=== PATIENT | male | born 1985 | race Caucasian/White ===

== ENCOUNTER 2016-09-20 12:46 | Emergency (ER) | payer OTHER ==
--- NOTE | 2016-09-20 15:48 | ED ORDER SUMMARY ---
..... Patient: NESS NEAL OrderSheet [facility] VisitID: [id number] [address] [place] [address] 31y, M Registration Date/Time: 09/20/2016 ORDER SHEET Weight: 169.1 kg (stated) Allergies: No Known Drug Allergy GENERAL ORDERS: UA-Culture if indicated Urgent (13:24 09/20/2016 Sinanelli R.N. verbal order read back to Denny DE LOS SANTOS) (13:24 Sinanelli R.N.) CBC w Diff Urgent (14:48 09/20/2016 EKoroleva P.A.-C) (14:55 Rick R.N.) CMP Urgent (14:48 09/20/2016 EKoroleva P.A.-C) (14:55 Rick R.N.) Lipase Urgent (14:48 09/20/2016 EKoroleva P.A.-C) (14:55 Rick R.N.) MEDICATION ORDERS: Valium PO 5 mg (NOW) (14:50 09/20/2016 EKoroleva P.A.-C) (Ack 14:51 Rick R.N.) (14:55 Rick R.N.) Hydrocodone-APAP PO 5/325 mg (NOW, HIGH ALERT MEDICATION) (14:50 09/20/2016 EKoroleva P.A.-C) (Ack 14:51 Rick R.N.) (14:55 Rick R.N.) IV FLUIDS: ORDER SHEET NOTES: [Electronically signed by Antonia Rai R.N. (16:17 09/20/2016)] [Electronically signed by Sherlyn DorseyASaurabh-C (16:56 09/20/2016)] [Electronically locked/signed by Antonia Rai R.N. (16:17 09/20/2016)]
--- NOTE | 2016-09-20 15:48 | ED NURSING NOTES ---
Clinical Report - Nurses [facility] [place] [address] 09/20/2016 12:45 Patient: NESS NEAL TRIAGE Triage time 13:10 Sep 20 2016. Acuity: LEVEL 3. Chief Complaint: BACK PAIN. Alert. LALA COMA SCORE: Lala Coma Scale: 15- eyes open spontaneously (4); best verbal response- oriented x 4 (5); best motor response- obeys commands (6). --13:22 Jonathan Blanco R.N. 13:18 09/20/16. BP: 140/93. HR: 94. RR: 18. O2 saturation: 96% on room air. Temp: 98.7 F (oral). Pain level now: 05/24. Additional comments: (R) Flank. --13:22 Jonathan Blanco R.N. Weight: 169.1 kg stated. Height/Length: 76 inches Per Patient. BMI: 45.4. --13:18 Jonathan Blanco R.N. Medications CeleXA Oral 40 mg. --13:12 Jonathan Blanco R.N. Allergies No Known Drug Allergy. --13:13 Jonathan Blanco R.N. Medication/allergy information source: the patient. --13:22 Jonathan Blanco R.N. History Arrived by private vehicle. Historian: patient. Accompanied by friend. Primary physician (Reece Dupree). ( Back Pain in the (R) Flank region). Onset. (about 3 - 4 days ago). No history of recent trauma. ( nausea). 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 (Excedrin, Icy-Hot). PAST MEDICAL HX: Tetanus status: unknown. Immunizations: status is unknown. SOCIAL HX: Never smoker. No alcohol use or drug use. No infectious disease exposure. ABUSE ASSESSMENT: No report of abuse. FALL RISK ASSESSMENT: Fall risk assessment completed. No fall risk identified. NUTRITIONAL RISK ASSESSMENT: The nutritional risk assessment revealed no deficiencies. FUNCTIONAL ASSESSMENT: Functional assessment: no impairments noted. LEARNING NEEDS ASSESSMENT: The learning needs assessment revealed no barriers. SKIN INTEGRITY ASSESSMENT: Skin integrity risk assessment completed. No skin integrity risk identified. --13:22 Jonathan Blanco R.N. PROBLEMS: Sprain. Abscess. Dysuria. Depression. Bronchitis. Post-Op Complications. Paronychia. Atopic Dermatitis. Tetanus Status. Ingrown Toenail. Sinusitis. Pedal Edema. Lower Extremity Pain. Hypertension. Sleep Apnea. --13:21 Jonathan Blanco R.N. ADDITIONAL SURGERIES: Tracheostomy. Tympanostomy Tubes. --13:21 Jonathan Blanco R.N. Interventions ID band on patient. To treatment room. --13:22 Jonathan Blanco R.N. PHYSICAL ASSESSMENT 14:45 09/20/16. Ambulatory to room. Patient gowned. GENERAL / NEURO / PSYCH: Alert. Oriented X 4. Appears in no acute distress. RESPIRATORY: Respirations not labored. --14:45 Antonia Rai R.N. NURSING PROGRESS NOTES 13:25 09/20/16. Patient ID band checked for patient name, birthdate and medical record number: patient confirmed. Instructions provided to collect clean catch urine and patient verbalized understanding. Clean catch urine collected with return of yellow-colored clear urine; odor is normal; sample sent to lab for urinalysis and culture. Specimen labeled in the presence of the patient. --13:25 Jonathan Blanco R.N. 14:45 09/20/16. Patient gowned. Head of bed elevated. Call light placed in reach. Side rails up x 1. Bed placed in lowest position. Brakes of bed on. --14:45 Antonia Rai R.N. 14:55 09/20/2016 Valium (Diazepam) PO Tablets 5 mg given. Allergies verified, confirmed 5 rights and sedative warning given to the patient. --14:55 Antonia Rai R.N. 14:55 09/20/2016 Hydrocodone-APAP (Hydrocodone-Acetaminophen) PO 5/325 mg Tablets 1 tab given. Allergies verified, confirmed 5 rights and sedative warning given to the patient. --14:55 Antonia Rai R.N. Blood samples drawn by lab. --14:56 Antonia Rai R.N. ( Called Dr. Kirby Flowers in [place].). --15:16 Harika Cervantes, ER Tech1 16:00. Reassessment after medication administered. He is calm and resting quietly. Overall patient status is improved- he states feels better. GENERAL / NEURO / PSYCH: Alert. Oriented X 4. RESPIRATORY: No respiratory distress. SKIN: Skin is warm and dry. --16:16 Antonia Rai R.N. DISPOSITION / DISCHARGE Departure time: 1600. Condition at departure: improved and stable. No learning barriers present. Reviewed medication(s). Prescription(s) given to the patient. Patient verbalized understanding. Written instructions provided in Ukrainian. The patient was discharged home and unaccompanied at time of discharge. He left the Emergency Department ambulatory and via private vehicle. FALL RISK ASSESSMENT: Fall risk assessment completed. No fall risk identified. --16:16 Antonia Rai R.N. 16:00 09/20/16. BP: 132/71. HR: 86. RR: 18. O2 saturation: 95% on room air. Pain level now: 11/22. --16:16 Antonia Rai R.N. Locked/Released at 09/20/2016 16:17 by Antonia Rai R.N.
--- NOTE | 2016-09-20 15:48 | ED ORDER SUMMARY ---
..... Patient: NESS NEAL OrderSheet [facility] VisitID: [id number] [address] [place] [address] 31y, M Registration Date/Time: 09/20/2016 ORDER SHEET Weight: 169.1 kg (stated) Allergies: No Known Drug Allergy GENERAL ORDERS: UA-Culture if indicated Urgent (13:24 09/20/2016 Sinanelli R.N. verbal order read back to Denny DE LOS SANTOS) (13:24 Sinanelli R.N.) CBC w Diff Urgent (14:48 09/20/2016 EKoroleva P.A.-C) (14:55 Rick R.N.) CMP Urgent (14:48 09/20/2016 EKoroleva P.A.-C) (14:55 Rick R.N.) Lipase Urgent (14:48 09/20/2016 EKoroleva P.A.-C) (14:55 Rick R.N.) MEDICATION ORDERS: Valium PO 5 mg (NOW) (14:50 09/20/2016 EKoroleva P.A.-C) (Ack 14:51 Rick R.N.) (14:55 Rick R.N.) Hydrocodone-APAP PO 5/325 mg (NOW, HIGH ALERT MEDICATION) (14:50 09/20/2016 EKoroleva P.A.-C) (Ack 14:51 Rick R.N.) (14:55 Rick R.N.) IV FLUIDS: ORDER SHEET NOTES: [Electronically signed by Antonia Rai R.N. (16:17 09/20/2016)] [Electronically signed by Sherlyn DorseyASaurabh-C (16:56 09/20/2016)] [Electronically locked/signed by Antonia Rai R.N. (16:17 09/20/2016)]
--- NOTE | 2016-09-20 15:48 | ED NURSING NOTES ---
Clinical Report - Nurses [facility] [place] [address] 09/20/2016 12:45 Patient: NESS NEAL TRIAGE Triage time 13:10 Sep 20 2016. Acuity: LEVEL 3. Chief Complaint: BACK PAIN. Alert. LALA COMA SCORE: Lala Coma Scale: 15- eyes open spontaneously (4); best verbal response- oriented x 4 (5); best motor response- obeys commands (6). --13:22 Jonathan Blanco R.N. 13:18 09/20/16. BP: 140/93. HR: 94. RR: 18. O2 saturation: 96% on room air. Temp: 98.7 F (oral). Pain level now: 05/24. Additional comments: (R) Flank. --13:22 Jonathan Blanco R.N. Weight: 169.1 kg stated. Height/Length: 76 inches Per Patient. BMI: 45.4. --13:18 Jonathan Blanco R.N. Medications CeleXA Oral 40 mg. --13:12 Jonathan Blanco R.N. Allergies No Known Drug Allergy. --13:13 Jonathan Blanco R.N. Medication/allergy information source: the patient. --13:22 Jonathan Blanco R.N. History Arrived by private vehicle. Historian: patient. Accompanied by friend. Primary physician (Reece Dupree). ( Back Pain in the (R) Flank region). Onset. (about 3 - 4 days ago). No history of recent trauma. ( nausea). 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 (Excedrin, Icy-Hot). PAST MEDICAL HX: Tetanus status: unknown. Immunizations: status is unknown. SOCIAL HX: Never smoker. No alcohol use or drug use. No infectious disease exposure. ABUSE ASSESSMENT: No report of abuse. FALL RISK ASSESSMENT: Fall risk assessment completed. No fall risk identified. NUTRITIONAL RISK ASSESSMENT: The nutritional risk assessment revealed no deficiencies. FUNCTIONAL ASSESSMENT: Functional assessment: no impairments noted. LEARNING NEEDS ASSESSMENT: The learning needs assessment revealed no barriers. SKIN INTEGRITY ASSESSMENT: Skin integrity risk assessment completed. No skin integrity risk identified. --13:22 Jonathan Blanco R.N. PROBLEMS: Sprain. Abscess. Dysuria. Depression. Bronchitis. Post-Op Complications. Paronychia. Atopic Dermatitis. Tetanus Status. Ingrown Toenail. Sinusitis. Pedal Edema. Lower Extremity Pain. Hypertension. Sleep Apnea. --13:21 Jonathan Blanco R.N. ADDITIONAL SURGERIES: Tracheostomy. Tympanostomy Tubes. --13:21 Jonathan Blanco R.N. Interventions ID band on patient. To treatment room. --13:22 Jonathan Blanco R.N. PHYSICAL ASSESSMENT 14:45 09/20/16. Ambulatory to room. Patient gowned. GENERAL / NEURO / PSYCH: Alert. Oriented X 4. Appears in no acute distress. RESPIRATORY: Respirations not labored. --14:45 Antonia Rai R.N. NURSING PROGRESS NOTES 13:25 09/20/16. Patient ID band checked for patient name, birthdate and medical record number: patient confirmed. Instructions provided to collect clean catch urine and patient verbalized understanding. Clean catch urine collected with return of yellow-colored clear urine; odor is normal; sample sent to lab for urinalysis and culture. Specimen labeled in the presence of the patient. --13:25 Jonathan Blanco R.N. 14:45 09/20/16. Patient gowned. Head of bed elevated. Call light placed in reach. Side rails up x 1. Bed placed in lowest position. Brakes of bed on. --14:45 Antonia Rai R.N. 14:55 09/20/2016 Valium (Diazepam) PO Tablets 5 mg given. Allergies verified, confirmed 5 rights and sedative warning given to the patient. --14:55 Antonia Rai R.N. 14:55 09/20/2016 Hydrocodone-APAP (Hydrocodone-Acetaminophen) PO 5/325 mg Tablets 1 tab given. Allergies verified, confirmed 5 rights and sedative warning given to the patient. --14:55 Antonia Rai R.N. Blood samples drawn by lab. --14:56 Antonia Rai R.N. ( Called Dr. Kirby Flowers in [place].). --15:16 Harika Cervantes, ER Tech1 16:00. Reassessment after medication administered. He is calm and resting quietly. Overall patient status is improved- he states feels better. GENERAL / NEURO / PSYCH: Alert. Oriented X 4. RESPIRATORY: No respiratory distress. SKIN: Skin is warm and dry. --16:16 Antonia Rai R.N. DISPOSITION / DISCHARGE Departure time: 1600. Condition at departure: improved and stable. No learning barriers present. Reviewed medication(s). Prescription(s) given to the patient. Patient verbalized understanding. Written instructions provided in Malagasy. The patient was discharged home and unaccompanied at time of discharge. He left the Emergency Department ambulatory and via private vehicle. FALL RISK ASSESSMENT: Fall risk assessment completed. No fall risk identified. --16:16 Antonia Rai R.N. 16:00 09/20/16. BP: 132/71. HR: 86. RR: 18. O2 saturation: 95% on room air. Pain level now: 11/22. --16:16 Antonia Rai R.N. Locked/Released at 09/20/2016 16:17 by Antonia Rai R.N.
--- NOTE | 2016-09-20 15:48 | ED CLINICAL REPORT ---
Clinical Report - Physicians/Mid Levels [facility] [address] [place] [address] 09/20/2016 12:45 Patient: NESS NEAL Time Seen: 16:53 Sep 20 2016. Arrived- By private vehicle. Historian- patient. HISTORY OF PRESENT ILLNESS Chief Complaint: BACK PAIN. It is described as being in the area of the right upper lumbar spine and right flank. 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 Additional history - Right-sided flank pain, associated with worsening of movement. Pain improves with lying still. Pain worsens upon standing. Patient reportsno trauma history. Denies urgency frequency of urination. Denies any nausea or vomiting or diarrhea. Denies any shortness of breath or chest pain. Denies radiation of pain. REVIEW OF SYSTEMS No fever, difficulty with urination, urinary frequency or vaginal discharge. All systems otherwise negative, except as recorded above. SOCIAL HISTORY Never smoker. No alcohol use or drug use. ADDITIONAL NOTES The nursing notes have been reviewed. PHYSICAL EXAM Vital Signs: 09/20/2016 13:18 BP: 140/93. HR: 94. RR: 18. O2 saturation: 96%. Temp: 98.7 F. Pain level now: 10/10. Appearance: Alert. Eyes: Pupils equal, round and reactive to light. ENT: Ears normal. Neck: (trach in place, no surrounding drainage). Respiratory: No respiratory distress. Breath sounds normal. Abdomen: No visible injury. Soft. Back: Muscle spasm of the back (r. thoracic, and upper lumbar). Soft tissue tenderness. No painless ROM. No vertebral point tenderness. (pain with external rotation). Neuro: Oriented X 3. Mood/affect normal. PROGRESS AND PROCEDURES Course of Care: There are no risks for spinal epidural abscess or hematoma as patient is without any risk factors such as IVDA or evidence of active infection, no midline tenderness to percussion. Hence I do not feel emergent imaging with an MRI is indicated. However I did discuss with the patient that if these symptoms develop, or if the pain does not resolve an MRI may need to be done outpatient, or in the ED if symptoms worsen acutely or new onset of the above mentioned symptoms develop. Patient with isolated right flank pain, with negative lab workup and urinalysis, Ongoing for 3 days, worsening on palpation and movement, exacerbated by such, and is also reproduced. No associated shortness of breath, chest pain. Abdomen is soft nontender. No history of trauma or injury. No rash. No midline spinous tenderness. 09/20/2016 16:00 BP: 132/71. HR: 86. RR: 18. O2 saturation: 95%. Pain level now: 10. Patient is stable. Symptoms better. Patient/family counseled. Differential Diagnosis: I considered Musculo-skeletal strain, contusion, facet syndrome, sacroiliac joint strain, splenic injury, osteoarthritis, ankylosing spondylitis, pancreatitis, epidural abscess, pyelonephritis, neurofibroma, meningioma, multiple myeloma, metastatic cancer, abdominal aortic aneurysm and aortic dissection as a possible cause of back pain in this patient. This is a partial list of diagnoses considered. Disposition: Discharged. CLINICAL IMPRESSION Acute myofascial strain Acute lumbar strain. INSTRUCTIONS Apply ice. Limit lifting. Prescription Medications: Hydrocodone/APAP 7.5mg / 325mg: take 1 orally every 6 hours as needed for pain. Dispense twelve (12). No refill. Robaxin 750 mg: take 1 orally every 8 hours for 5 days, as needed for muscle spasm. Dispense fifteen (15). No refill. Substitution is permissible. Follow-up: Follow up with your doctor in three days. (Electronically signed by Sherlyn Dorsey P.A.-C 09/20/2016 16:56)
--- NOTE | 2016-09-20 15:48 | ED CLINICAL REPORT ---
Clinical Report - Physicians/Mid Levels [facility] [address] [place] [address] 09/20/2016 12:45 Patient: NESS NEAL Time Seen: 16:53 Sep 20 2016. Arrived- By private vehicle. Historian- patient. HISTORY OF PRESENT ILLNESS Chief Complaint: BACK PAIN. It is described as being in the area of the right upper lumbar spine and right flank. 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 Additional history - Right-sided flank pain, associated with worsening of movement. Pain improves with lying still. Pain worsens upon standing. Patient reportsno trauma history. Denies urgency frequency of urination. Denies any nausea or vomiting or diarrhea. Denies any shortness of breath or chest pain. Denies radiation of pain. REVIEW OF SYSTEMS No fever, difficulty with urination, urinary frequency or vaginal discharge. All systems otherwise negative, except as recorded above. SOCIAL HISTORY Never smoker. No alcohol use or drug use. ADDITIONAL NOTES The nursing notes have been reviewed. PHYSICAL EXAM Vital Signs: 09/20/2016 13:18 BP: 140/93. HR: 94. RR: 18. O2 saturation: 96%. Temp: 98.7 F. Pain level now: 10/10. Appearance: Alert. Eyes: Pupils equal, round and reactive to light. ENT: Ears normal. Neck: (trach in place, no surrounding drainage). Respiratory: No respiratory distress. Breath sounds normal. Abdomen: No visible injury. Soft. Back: Muscle spasm of the back (r. thoracic, and upper lumbar). Soft tissue tenderness. No painless ROM. No vertebral point tenderness. (pain with external rotation). Neuro: Oriented X 3. Mood/affect normal. PROGRESS AND PROCEDURES Course of Care: There are no risks for spinal epidural abscess or hematoma as patient is without any risk factors such as IVDA or evidence of active infection, no midline tenderness to percussion. Hence I do not feel emergent imaging with an MRI is indicated. However I did discuss with the patient that if these symptoms develop, or if the pain does not resolve an MRI may need to be done outpatient, or in the ED if symptoms worsen acutely or new onset of the above mentioned symptoms develop. Patient with isolated right flank pain, with negative lab workup and urinalysis, Ongoing for 3 days, worsening on palpation and movement, exacerbated by such, and is also reproduced. No associated shortness of breath, chest pain. Abdomen is soft nontender. No history of trauma or injury. No rash. No midline spinous tenderness. 09/20/2016 16:00 BP: 132/71. HR: 86. RR: 18. O2 saturation: 95%. Pain level now: 10. Patient is stable. Symptoms better. Patient/family counseled. Differential Diagnosis: I considered Musculo-skeletal strain, contusion, facet syndrome, sacroiliac joint strain, splenic injury, osteoarthritis, ankylosing spondylitis, pancreatitis, epidural abscess, pyelonephritis, neurofibroma, meningioma, multiple myeloma, metastatic cancer, abdominal aortic aneurysm and aortic dissection as a possible cause of back pain in this patient. This is a partial list of diagnoses considered. Disposition: Discharged. CLINICAL IMPRESSION Acute myofascial strain Acute lumbar strain. INSTRUCTIONS Apply ice. Limit lifting. Prescription Medications: Hydrocodone/APAP 7.5mg / 325mg: take 1 orally every 6 hours as needed for pain. Dispense twelve (12). No refill. Robaxin 750 mg: take 1 orally every 8 hours for 5 days, as needed for muscle spasm. Dispense fifteen (15). No refill. Substitution is permissible. Follow-up: Follow up with your doctor in three days. (Electronically signed by Sherlyn Dorsey P.A.-C 09/20/2016 16:56)
--- NOTE | 2016-09-20 16:56 | ED MAR SUMMARY ---
..... Medication Administration Record [facility] [address] [place] [address] Patient: NESS NEAL Visit ID: [id number] 31y, M Weight: 169.1 kg Height/Length: 76 in BMI: 45.4 ALLERGIES: No Known Drug Allergy Given 14:09/20/2016 Antonia Rai RSaurabhN. Medication Administered: VALIUM [PO] (DIAZEPAM), Dose: 5 mg Tablets PO. Medication Ordered: Valium PO 5 mg (NOW). Given 14:09/20/2016 Antonia Rai, R.N. Medication Administered: HYDROCODONE-APAP [PO] (HYDROCODONE-ACETAMINOPHEN), Dose: 1 tab 5/325 mg Tablets PO. Medication Ordered: Hydrocodone-APAP PO 5/325 mg (NOW, HIGH ALERT MEDICATION).
--- NOTE | 2016-09-20 16:56 | ED DISCHARGE INSTRUCTIONS ---
Patient: NESS NEAL General Instructions [facility] VisitID: [id number] [place] [address] 31y, M Registration Date/Time: 09/20/2016 Acute myofascial strain Acute lumbar strain. INSTRUCTIONS Apply ice. Limit lifting. Prescription Medications: Hydrocodone/APAP 7.5mg / 325mg: take 1 orally every 6 hours as needed for pain. Dispense twelve (12). No refill. Robaxin 750 mg: take 1 orally every 8 hours for 5 days, as needed for muscle spasm. Dispense fifteen (15). No refill. Substitution is permissible. Follow-up: Follow up with your doctor in three days. ADDITIONAL INFORMATION Muscle Strain,Extremity A MUSCLE STRAIN is a stretching and tearing of muscle fibers. This causes pain, especially with motion of that muscle. There may also be some swelling and bruising. Home Care: 1) Keep the injured area raised to reduce pain and swelling. This is especially important during the first 48 hours. 2) Make an ice pack (ice cubes in a plastic bag, wrapped in a towel) and apply for 20 minutes every 1-2 hours the first day. You should continue with ice packs 3-4 times a day for the second and third days. Unless otherwise instructed, on the fourth day you may begin hot soaks or hot packs (small towel soaked in hot water) 3-4 times a day while you gently exercise the involved area. 3) You may use acetaminophen (Tylenol) or ibuprofen (Motrin, Advil) to control pain, unless another medicine was prescribed. [ NOTE : If you have chronic liver or kidney disease or ever had a stomach ulcer or GI bleeding, talk with your doctor before using these medicines.] 4) For LEG STRAINS: If CRUTCHES have been recommended, do not bear full weight on the injured leg until you can do so without pain. You may return to sports when you are able to hop and run on the injured leg without pain. Follow Up with your doctor or this facility if you are not improving within the next five days. Get Prompt Medical Attention if any of the following occur: -- Fingers or toes become swollen, cold, blue, numb or tingly -- Pain or swelling increases Back Pain [Acute Or Chronic] Back pain is usually caused by an injury to the muscles or ligaments of the spine. Sometimes the disks that separate each bone in the spine may bulge and cause pain by pressing on a nearby nerve. Back pain may also appear after a sudden twisting/bending force (such as in a car accident), after a simple awkward movement, or lifting something heavy with poor body positioning. In either case, muscle spasm is often present and adds to the pain. Acute back pain usually gets better in one to two weeks. Back pain related to disk disease, arthritis in the spinal joints or spinal stenosis (narrowing of the spinal canal) can become chronic and last for months or years. Unless you had a physical injury (for example, a car accident or fall) X-rays are usually not ordered for the initial evaluation of back pain. If pain continues and does not respond to medical treatment, x-rays and other tests may be performed at a later time. Home Care: You may need to stay in bed the first few days. But, as soon as possible, begin sitting or walking to avoid problems with prolonged bed rest (muscle weakness, worsening back stiffness and pain, blood clots in the legs). When in bed, try to find a position of comfort. A firm mattress is best. Try lying flat on your back with pillows under your knees. You can also try lying on your side with your knees bent up towards your chest and a pillow between your knees. Avoid prolonged sitting. This puts more stress on the lower back than standing or walking. During the first two days after injury, apply an ICE PACK to the painful area for 20 minutes every 2-4 hours. This will reduce swelling and pain. HEAT (hot shower, hot bath or heating pad) works well for muscle spasm. You can start with ice, then switch to heat after two days. Some patients feel best alternating ice and heat treatments. Use the one method that feels the best to you. You may use acetaminophen (Tylenol) or ibuprofen (Motrin, Advil) to control pain, unless another pain medicine was prescribed. [NOTE: If you have chronic liver or kidney disease or ever had a stomach ulcer or GI bleeding, talk with your doctor before using these medicines.] Be aware of safe lifting methods and do not lift anything over 15 pounds until all the pain is gone. Follow Up with your doctor or this facility if your symptoms do not start to improve after one week. Physical therapy may be needed. [NOTE: If X-rays were taken, they will be reviewed by a radiologist. You will be notified of any new findings that may affect your care.] Get Prompt Medical Attention if any of the following occur: Pain becomes worse or spreads to your legs Weakness or numbness in one or both legs Loss of bowel or bladder control Numbness in the groin or genital area Hydrocodone Bitartrate, Acetaminophen Oral tablet What is this medicine? ACETAMINOPHEN; HYDROCODONE (a set a TEODORO annetta fen; mane droe KOE done) is a pain reliever. It is used to treat mild to moderate pain. How should I use this medicine? Take this medicine by mouth. Swallow it with a full glass of water. Follow the directions on the prescription label. If the medicine upsets your stomach, take the medicine with food or milk. Do not take more than you are told to take. Talk to your house nurse regarding the use of this medicine in children. This medicine is not approved for use in children. What side effects may I notice from receiving this medicine? Side effects that you should report to your doctor or health patient care manager as soon as possible: allergic reactions like skin rash, itching or hives, swelling of the face, lips, or tongue breathing problems confusion feeling faint or lightheaded, falls stomach pain yellowing of the eyes or skin Side effects that usually do not require medical attention (report to your doctor or health patient care manager if they continue or are bothersome): nausea, vomiting stomach upset What may interact with this medicine? alcohol antihistamines isoniazid medicines for depression, anxiety, or psychotic disturbances medicines for sleep muscle relaxants naltrexone narcotic medicines (opiates) for pain phenobarbital ritonavir tramadol What if I miss a dose? If you miss a dose, take it as soon as you can. If it is almost time for your next dose, take only that dose. Do not take double or extra doses. Where should I keep my medicine? Keep out of the reach of children. This medicine can be abused. Keep your medicine in a safe place to protect it from theft. Do not share this medicine with anyone. Selling or giving away this medicine is dangerous and against the law. Store at room temperature between 15 and 30 degrees C (59 and 86 degrees F). Protect from light. Keep container tightly closed. Throw away any unused medicine after the expiration date. Discard unused medicine and used packaging carefully. Pets and children can be harmed if they find used or lost packages. What should I tell my health care provider before I take this medicine? They need to know if you have any of these conditions: brain tumor Crohn's disease, inflammatory bowel disease, or ulcerative colitis drink more than 3 alcohol-containing drinks per day drug abuse or addiction head injury heart or circulation problems kidney disease or problems going to the bathroom liver disease lung disease, asthma, or breathing problems an unusual or allergic reaction to acetaminophen, hydrocodone, other opioid analgesics, other medicines, foods, dyes, or preservatives or trying to get breast-feeding What should I watch for while using this medicine? Tell your doctor or health patient care manager if your pain does not go away, if it gets worse, or if you have new or a different type of pain. You may develop tolerance to the medicine. Tolerance means that you will need a higher dose of the medicine for pain relief. Tolerance is normal and is expected if you take the medicine for a long time. Do not suddenly stop taking your medicine because you may develop a severe reaction. Your body becomes used to the medicine. This does NOT mean you are addicted. Addiction is a behavior related to getting and using a drug for a non-medical reason. If you have pain, you have a medical reason to take pain medicine. Your doctor will tell you how much medicine to take. If your doctor wants you to stop the medicine, the dose will be slowly lowered over time to avoid any side effects. You may get drowsy or dizzy when you first start taking the medicine or change doses. Do not drive, use machinery, or do anything that may be dangerous until you know how the medicine affects you. Stand or sit up slowly. There are different types of narcotic medicines (opiates) for pain. If you take more than one type at the same time, you may have more side effects. Give your health care provider a list of all medicines you use. Your doctor will tell you how much medicine to take. Do not take more medicine than directed. Call emergency for help if you have problems breathing. The medicine will cause constipation. Try to have a bowel movement at least every 2 to 3 days. If you do not have a bowel movement for 3 days, call your doctor or health patient care manager. Too much acetaminophen can be very dangerous. Do not take Tylenol (acetaminophen) or medicines that contain acetaminophen with this medicine. Many non-prescription medicines contain acetaminophen. Always read the labels carefully. Methocarbamol Oral tablet What is this medicine? METHOCARBAMOL (meth oh KAPIL ba mole) helps to relieve pain and stiffness in muscles caused by strains, sprains, or other injury to your muscles. How should I use this medicine? Take this medicine by mouth with a full glass of water. Follow the directions on the prescription label. Take your medicine at regular intervals. Do not take your medicine more often than directed. Talk to your house nurse regarding the use of this medicine in children. Special care may be needed. What side effects may I notice from receiving this medicine? Side effects that you should report to your doctor or health patient care manager as soon as possible: allergic reactions like skin rash, itching or hives, swelling of the face, lips, or tongue blurred vision or changes in vision confusion fainting spells fever nausea or vomiting seizures Side effects that usually do not require medical attention (report to your doctor or health patient care manager if they continue or are bothersome): dizziness drowsiness headache metallic taste What may interact with this medicine? alcohol or medicines that contain alcohol cholinesterase inhibitors like neostigmine, ambenonium, and pyridostigmine bromide other medicines that cause drowsiness What if I miss a dose? If you miss a dose, take it as soon as you can. If it is almost time for your next dose, take only the next dose. Do not take double or extra doses. Where should I keep my medicine? Keep out of the reach of children. Store at room temperature between 20 and 25 degrees C (68 and 77 degrees F). Keep container tightly closed. Throw away any unused medicine after the expiration date. What should I tell my health care provider before I take this medicine? They need to know if you have any of these conditions: kidney disease seizures an unusual or allergic reaction to methocarbamol, other medicines, foods, dyes, or preservatives or trying to get breast-feeding What should I watch for while using this medicine? You may get drowsy or dizzy. Do not drive, use machinery, or do anything that needs mental alertness until you know how this medicine affects you. Do not stand or sit up quickly, especially if you are an older patient. This reduces the risk of dizzy or fainting spells. Alcohol may interfere with the effect of this medicine. Avoid alcoholic drinks. You have been given the following additional information: Muscle Strain, Extremity Back Pain (Acute Or Chronic) Hydrocodone Bitartrate, Acetaminophen Oral tablet Methocarbamol Oral tablet Limit lifting. (Electronically signed by Sherlyn Dorsey P.A.-C 09/20/2016 16:56)
--- NOTE | 2016-09-20 16:56 | ED MAR SUMMARY ---
..... Medication Administration Record [facility] [address] [place] [address] Patient: NESS NEAL Visit ID: [id number] 31y, M Weight: 169.1 kg Height/Length: 76 in BMI: 45.4 ALLERGIES: No Known Drug Allergy Given 14:09/20/2016 Antonia Rai RSaurabhN. Medication Administered: VALIUM [PO] (DIAZEPAM), Dose: 5 mg Tablets PO. Medication Ordered: Valium PO 5 mg (NOW). Given 14:09/20/2016 Antonia Rai, R.N. Medication Administered: HYDROCODONE-APAP [PO] (HYDROCODONE-ACETAMINOPHEN), Dose: 1 tab 5/325 mg Tablets PO. Medication Ordered: Hydrocodone-APAP PO 5/325 mg (NOW, HIGH ALERT MEDICATION).
--- NOTE | 2016-09-20 16:56 | ED MED RECONCILIATION SUMMARY ---
Patient: NESS NEAL Medication Reconciliation Report [facility] VisitID: [id number] [address] [place] [address] 31y, M Registration Date/Time: 09/20/2016 Weight: 169.1 kg Height/Length: 76 in. BMI: 45.4 ALLERGIES: No Known Drug Allergy The patient's Home Medications are listed below: THE FOLLOWING MEDICATIONS NEED TO BE RECONCILED: CeleXA Oral 40 mg The source(s) of the original Home Medication information: patient The following Medications were given to the patient in the Emergency Department: Valium [PO] PO 5 mg, administered: 09/20/2016 2:55:00 PM Hydrocodone-APAP [PO] PO 1 tab, administered: 09/20/2016 2:55:00 PM The following Medications were prescribed to the patient: Hydrocodone/APAP 7.5mg / 325mg: take 1 orally every 6 hours as needed for pain. Dispense twelve (12). No refill. -- Sherlyn Dorsey, P.AMaude Robaxin 750 mg: take 1 orally every 8 hours for 5 days, as needed for muscle spasm. Dispense fifteen (15). No refill. Substitution is permissible. -- Sherlyn Dorsey P.A.-C
--- NOTE | 2016-09-20 16:56 | ED MED RECONCILIATION SUMMARY ---
Patient: NESS NEAL Medication Reconciliation Report [facility] VisitID: [id number] [address] [place] [address] 31y, M Registration Date/Time: 09/20/2016 Weight: 169.1 kg Height/Length: 76 in. BMI: 45.4 ALLERGIES: No Known Drug Allergy The patient's Home Medications are listed below: THE FOLLOWING MEDICATIONS NEED TO BE RECONCILED: CeleXA Oral 40 mg The source(s) of the original Home Medication information: patient The following Medications were given to the patient in the Emergency Department: Valium [PO] PO 5 mg, administered: 09/20/2016 2:55:00 PM Hydrocodone-APAP [PO] PO 1 tab, administered: 09/20/2016 2:55:00 PM The following Medications were prescribed to the patient: Hydrocodone/APAP 7.5mg / 325mg: take 1 orally every 6 hours as needed for pain. Dispense twelve (12). No refill. -- Sherlyn Dorsey, P.AMaude Robaxin 750 mg: take 1 orally every 8 hours for 5 days, as needed for muscle spasm. Dispense fifteen (15). No refill. Substitution is permissible. -- Sherlny Dorsey P.A.-C
== END 2016-09-20 16:00 | disposition home or self-care (01) ==
LOC: ED SRH 12:46
DX: S39.012A Strain of muscle, fascia and tendon of lower back, initial encounter (principal); X58.XXXA Exposure to other specified factors, initial encounter; Y93.9 Activity, unspecified; Y92.9 Unspecified place or not applicable; Y99.9 Unspecified external cause status
CPT/HCPCS: 90004; 90100; 92235; 95059